=== PATIENT | male | born 1995 | race Caucasian/White ===

== ENCOUNTER 2019-03-27 07:05 | Emergency (ER) | payer MEDICAID, OTHER ==
[~2019-03-27] VITALS: Ht 177.8 cm; Wt 106.8 kg
[~2019-03-27 07:05] MED LIST: CIPR500T4 PO; IBUP-1542 PO; ONDA4TAB14 PO
[2019-03-27 07:06] VITALS: Ht 177.8 cm; Wt 106.8 kg
[2019-03-27] MEDS ORDERED: SODIUM CHLORIDE 0.9% 1L BAG IV* STA (07:24)
[2019-03-27] MEDS ORDERED: ACETAMINOPHEN 325 MG TAB PO STA (07:24)
[2019-03-27] MEDS ORDERED: ONDANSETRON 4 MG INJ IV STA (07:24)
[2019-03-27 07:25] VITALS: RESP 18
[2019-03-27 09:37] VITALS: BP 130/68; PULSE 95
== END 2019-03-27 09:39 | disposition home or self-care (01) ==
LOC: E/R 07:05
DX: N30.90 Cystitis, unspecified without hematuria (principal); R11.2 Nausea with vomiting, unspecified; F17.210 Nicotine dependence, cigarettes, uncomplicated
CPT/HCPCS: 36415; 71045; 80053; 81001; 83605; 84484; 85025; 85610; 85730; 87040; 87086; 93005; 96374; J2405; J7030; Z7502; Z7610